=== PATIENT | male | born 1945 | race Caucasian/White ===

== ENCOUNTER 2019-05-14 14:15 | Emergency (ER) | payer OTHER, MEDICAID ==
[~2019-05-14] VITALS: Ht 157.5 cm; Wt 72.6 kg
[2019-05-14 14:19] VITALS: Ht 157.5 cm; Wt 72.6 kg
[2019-05-14 14:49] LABS: BASOPHIL % 0.4 % (0-2); PLATELET COUNT 198 x10^3mcL (130-400); RED CELL DISTRIBUTION WIDTH 13.2 % (11.5-14.5)
[2019-05-14 14:50] LABS: CARBON DIOXIDE 25.7 mmol/L (21-32); CHLORIDE SERUM 106 mmol/L (98-107); CREATININE SERUM 1.3 mg/dL (0.7-1.3); GLUCOSE SERUM 271 mg/dL (74-106); POTASSIUM SERUM 3.9 mmol/L (3.5-5.1); SODIUM SERUM 144 mmol/L (136-145)
[2019-05-14 14:55] LABS: ALBUMIN 4.3 g/dL (3.4-5.0); ALKALINE PHOSPHATASE 59 U/L (46-116); ALT/SGPT 60 U/L (16-63); AST/SGOT 31 U/L (15-37); BILIRUBIN TOTAL 0.7 mg/dL (0.20-1.00); TOTAL PROTEIN, SERUM 8.2 g/dL (6.4-8.2)
[2019-05-14 15:24] VITALS: BP 146/79
== END 2019-05-14 15:24 | disposition short-term general hospital (02) ==
LOC: ED 14:15
DX: I21.19 ST elevation (STEMI) myocardial infarction involving other coronary artery of inferior wall (principal); E11.9 Type 2 diabetes mellitus without complications; I10 Essential (primary) hypertension
CPT/HCPCS: J1644; J2405; J3010; Q0092